=== PATIENT | female | born 1960 | race Caucasian/White ===

== ENCOUNTER → 2019-03-30 | Outpatient (CLI) | payer OTHER ==
--- NOTE | 2019-03-30 15:57 | KCIC ---
MRI of the lumbar spine without contrast 03/30/2019 CLINICAL HISTORY: Low back pain which radiates down both legs, left greater than right. TECHNIQUE: Unenhanced T1-weighted and T2-weighted sagittal and axial and inversion recovery sagittal images of the lumbar spine were obtained. FINDINGS: Comparison is made to radiographs of the lumbar spine dated 03/28/2019. The patient has transitional vertebral anatomy. For the purposes of this dictation the transitional vertebral segment will be referred to by the letter T. It is sacralized. A hypoplastic disc is seen at T-S1. Very mild S-shaped curvature of the thoracolumbar spine is seen. Degenerative signal changes are seen involving all of the disks of the lumbar spine. Degenerative signal changes are seen within the marrow surrounding these discs. Loss of height of the L5-T disk is noted. Several hemangiomas are seen scattered throughout the lumbosacral vertebral bodies. These measure 5 mm to 2.6 cm in size. The conus medullaris is normal morphology, position, and signal characteristics. On the axial images throughout the lumbar lumbar disc spaces, the changes of mild degenerative disc disease are seen. These consist of minimal to mild generalized disc bulges, degenerative changes involving the facet joints and mild ligamentum flavum hypertrophy. These findings do not result in significant central spinal canal or neural foraminal stenosis. IMPRESSION: The changes of mild degenerative disc disease are seen involving the lumbar spine as discussed above. These findings do not result in significant central spinal canal or neural foraminal stenosis. Electronically signed by: Darian Chapa MD (03/30/2019 3:54 PM) [id number]
== END | disposition home or self-care (01) ==
LOC: KCIC MRI 11:36
PROVIDERS: ATTEND Registered Nurse
DX: M51.36 Other intervertebral disc degeneration, lumbar region (principal); D18.09 Hemangioma of other sites
CPT/HCPCS: 72148

== ENCOUNTER → 2020-02-29 | Outpatient (CLI) | payer OTHER ==
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
== END | disposition home or self-care (01) ==
LOC: KCIC MRI 15:20
PROVIDERS: ATTEND Family Medicine
DX: S82.831A Other fracture of upper and lower end of right fibula, initial encounter for closed fracture (principal); M25.571 Pain in right ankle and joints of right foot; M25.471 Effusion, right ankle; X58.XXXA Exposure to other specified factors, initial encounter; Y93.89 Activity, other specified; Y92.89 Other specified places as the place of occurrence of the external cause; Y99.8 Other external cause status
CPT/HCPCS: 73721